=== PATIENT | female | born 1950 | race Caucasian/White ===

== ENCOUNTER 2018-03-30 12:02 | Emergency (ER) | payer MEDICARE, BC ==
[~2018-03-30] VITALS: Ht 162.6 cm; Wt 81.0 kg
[~2018-03-30 12:02] MED LIST: ASPI-611 PO; TOPI25TA15 PO
[2018-03-30 12:06] VITALS: BP 143/71
[2018-03-30] MEDS ORDERED: methylPREDNISolone sod succ 125mg/2ml vial IM ONE (12:35)
[2018-03-30] MEDS ORDERED: METH4TAB81 PO (12:40)
== END 2018-03-30 13:18 | disposition home or self-care (01) ==
LOC: ER 12:02
DX: M12.842 Other specific arthropathies, not elsewhere classified, left hand (principal); M12.841 Other specific arthropathies, not elsewhere classified, right hand; Z90.710 Acquired absence of both cervix and uterus; Z79.82 Long term (current) use of aspirin; Z79.899 Other long term (current) drug therapy
CPT/HCPCS: 96372; 99283; J2930

== ENCOUNTER 2020-03-13 12:58 | Inpatient (IN) | payer MEDICARE, BC ==
[~2020-03-13] VITALS: Ht 162.6 cm; Wt 83.0 kg
[~2020-03-13 12:58] MED LIST changes: +METH4TAB81 PO
[2020-03-13] MEDS ORDERED: iohexol 350MG/ML 100ml bottle IV ONE (13:11)
[2020-03-13 13:18] LABS: BASOPHILS # (AUTO) 0.1 X10'3 (0-0.2); BASOPHILS % (AUTO) 1.1 % (0-1); EOSINOPHILS # (AUTO) 0.1 X10'3 (0-0.9); EOSINOPHILS % (AUTO) 1.1 % (0-6); LYMPHOCYTES # (AUTO) 2.3 X10'3 (1.1-4.8); LYMPHOCYTES % (AUTO) 22.2 % (21-51); MEAN CORPUSCULAR HEMOGLOBIN 27.9 PG (27.0-31.0); MEAN CORPUSCULAR HGB CONC 32.5 g/dL (33.0-36.5); MEAN CORPUSCULAR VOLUME 85.7 FL (78-98); MEAN PLATELET VOLUME 8.9 FL (7.4-10.4); MONOCYTES # (AUTO) 0.7 X10'3 (0-0.9); MONOCYTES % (AUTO) 6.5 % (2-12); NEUTROPHILS # (AUTO) 7.1 X10'3 (1.8-7.7); NEUTROPHILS % (AUTO) 69.1 % (42-75); PLATELET COUNT 272 X10'3 (140-440); RED BLOOD COUNT 5.02 X10'6 (4.20-5.60); RED CELL DISTRIBUTION WIDTH 14.4 % (11.5-14.5); WHITE BLOOD COUNT 10.3 X10'3 (4.5-11.0)
[2020-03-13 13:36] LABS: ALANINE AMINOTRANSFERASE 30 U/L (12-78); ALBUMIN 3.6 G/DL (3.4-5.0); ALBUMIN/GLOBULIN RATIO 0.9 (1.1-1.5); ALKALINE PHOSPHATASE 115 IU/L (46-116); ANION GAP 12 (8-16); ASPARTATE AMINO TRANSFERASE 17 U/L (10-37); BILIRUBIN,TOTAL 0.3 MG/DL (0.1-1.0); BLOOD UREA NITROGEN 29 MG/DL (7-18); BUN/CREATININE RATIO 14.9 (6.6-38.0); CALCIUM 8.8 MG/DL (8.5-10.1); CHLORIDE 114 MMOL/L (99-107); CREATININE 1.95 MG/DL (0.40-0.90); GLUCOSE 105 MG/DL (70-104); PARTIAL THROMBOPLASTIN TIME 27 SECONDS (22-32); POTASSIUM 4.2 MMOL/L (3.5-5.1); SODIUM 145 MMOL/L (135-145); TOTAL PROTEIN 7.7 G/DL (6.4-8.2); eGFR 26 ML/MIN
[2020-03-13] MEDS ORDERED: aspirin 325mg tablet PO ONE (13:40)
[2020-03-13 13:42] LABS: TROPONIN I < 0.04 NG/ML (0.0-0.05)
[2020-03-13] MEDS ORDERED: magnesium 2GM in 50ml NS 50 ML IV PRN (14:05)
[2020-03-13] MEDS ORDERED: potassium Cl 20 mEq SR tablet PO PRN ×2 (14:05)
[2020-03-13] MEDS ORDERED: magnesium 4gm in 100ml NS 100 ML IV PRN (14:05)
[2020-03-13] MEDS ORDERED: potassium CL 10mEq/100ml bag 100 ML IV PRN ×2 (14:05)
[2020-03-13] MEDS ORDERED: mag hydrox/Alum hydrox/simeth 30ml oral suspension PO PRN (14:05)
[2020-03-13] MEDS ORDERED: magnesium hydroxide 30ml (MOM) UD suspension PO PRN (14:05)
[2020-03-13] MEDS ORDERED: ondansetron/PF 4mg/2ml inj IV PRN (14:05)
[2020-03-13] MEDS ORDERED: acetaminophen 325mg tablet PO PRN (14:05)
--- NOTE | 2020-03-13 15:55 | NUR ---
REPORT ATTEMPTED, JOSE MAYO TO CALL BACK IN APPROX 10 MIN
--- NOTE | 2020-03-13 16:13 | NUR ---
received report from Rebecca BARAHONA RN. Expecting pt to room 4011a shortly
[2020-03-13] MEDS ORDERED: ipratropium/albuterol 3ml nebule NEB PRN (17:05)
[2020-03-13 17:12] VITALS: BP 126/50
--- NOTE | 2020-03-13 18:08 | NUR ---
report to Carolina GARCIA
[2020-03-13] MEDS: K and/or MAG REPLACEMENT MC SCH (20:00)
[2020-03-13] MEDS: topiramate 25mg tablet PO SCH (20:23)
[2020-03-13 22:00] VITALS: BP 115/45
[2020-03-14 02:17] VITALS: BP 122/47
[2020-03-14 06:00] VITALS: BP 112/40
--- NOTE | 2020-03-14 06:25 | NUR ---
Problems reprioritized. Patient report given, questions answered & plan of care reviewed with damari Johnson.
--- NOTE | 2020-03-14 06:42 | NUR ---
Patient in room [facility] 4011A. I have received report from JOSE Figueroa and had the opportunity to ask questions and assume patient care.
[2020-03-14] MEDS: topiramate 25mg tablet PO SCH (07:14)
[2020-03-14 07:21] LABS: BASOPHILS # (AUTO) 0.1 X10'3 (0-0.2); BASOPHILS % (AUTO) 0.8 % (0-1); EOSINOPHILS # (AUTO) 0.2 X10'3 (0-0.9); HEMATOCRIT 42.1 % (35.0-45.0); HEMOGLOBIN 13.6 g/dl (12.0-16.0); LYMPHOCYTES # (AUTO) 2.8 X10'3 (1.1-4.8); LYMPHOCYTES % (AUTO) 32.6 % (21-51); MEAN CORPUSCULAR HEMOGLOBIN 27.8 PG (27.0-31.0); MEAN CORPUSCULAR HGB CONC 32.4 g/dL (33.0-36.5); MEAN CORPUSCULAR VOLUME 85.8 FL (78-98); MEAN PLATELET VOLUME 9.4 FL (7.4-10.4); MONOCYTES # (AUTO) 0.6 X10'3 (0-0.9); MONOCYTES % (AUTO) 6.9 % (2-12); NEUTROPHILS % (AUTO) 57.7 % (42-75); PLATELET COUNT 282 X10'3 (140-440); RED BLOOD COUNT 4.91 X10'6 (4.20-5.60); RED CELL DISTRIBUTION WIDTH 14.6 % (11.5-14.5); WHITE BLOOD COUNT 8.6 X10'3 (4.5-11.0)
[2020-03-14 07:36] LABS: ALANINE AMINOTRANSFERASE 31 U/L (12-78); ALBUMIN 3.4 G/DL (3.4-5.0); ALBUMIN/GLOBULIN RATIO 0.8 (1.1-1.5); ALKALINE PHOSPHATASE 106 IU/L (46-116); ANION GAP 12 (8-16); ASPARTATE AMINO TRANSFERASE 16 U/L (10-37); BILIRUBIN,TOTAL 0.7 MG/DL (0.1-1.0); BLOOD UREA NITROGEN 25 MG/DL (7-18); BUN/CREATININE RATIO 18.2 (6.6-38.0); CALCIUM 9.3 MG/DL (8.5-10.1); CHLORIDE 112 MMOL/L (99-107); CHOL/HDL RATIO 2.8 (0.00-4.99); CHOLESTEROL 177 MG/DL (0-200); CREATININE 1.37 MG/DL (0.40-0.90); GLUCOSE 85 MG/DL (70-104); HDL CHOLESTEROL 63 MG/DL (35-60); LDL CHOLESTEROL 96 MG/DL (50-100); POTASSIUM 3.9 MMOL/L (3.5-5.1); SODIUM 143 MMOL/L (135-145); TOTAL PROTEIN 7.5 G/DL (6.4-8.2); TRIGLYCERIDES 163 MG/DL (20-135); eGFR 38 ML/MIN
[2020-03-14] MEDS ORDERED: aspirin 81mg tablet.DR PO SCH (08:00)
[2020-03-14] MEDS: K and/or MAG REPLACEMENT MC SCH (08:00)
[2020-03-14] MEDS ORDERED: aspirin 325mg tablet PO SCH (08:30)
[2020-03-14] MEDS ORDERED: CLOP75TA15 PO (09:16)
[2020-03-14] MEDS ORDERED: ATOR10TA PO (09:16)
[2020-03-14] MEDS ORDERED: ASPI-1071 PO (09:16)
--- NOTE | 2020-03-14 10:18 | NUR ---
DC INSTRUCTIONS GIVEN TO PT, QUESTIONS ANSWERED. IV REMOVED, CANULA INTACT, NO COMPLICATIONS. TELE MONITOR REMOVED. PT DRESSED SELF. WHEELED DOWN TO PRIVATE VEHICLE IN STABLE CONDITION
== END 2020-03-14 10:08 | disposition home or self-care (01) | DRG 65 ==
LOC: ER 12:59 → ED HOLD 14:01 → EDBEDREQ 15:11 → ORTHO 4S 16:51
PROVIDERS: ADMIT Family Medicine; ATTEND Family Medicine
DX: I63.9 Cerebral infarction, unspecified (principal); K50.90 Crohn's disease, unspecified, without complications; N17.9 Acute kidney failure, unspecified; N18.4 Chronic kidney disease, stage 4 (severe); R47.01 Aphasia; D32.9 Benign neoplasm of meninges, unspecified; E78.5 Hyperlipidemia, unspecified; F17.210 Nicotine dependence, cigarettes, uncomplicated; R47.1 Dysarthria and anarthria; H53.8 Other visual disturbances; G40.909 Epilepsy, unspecified, not intractable, without status epilepticus; L40.9 Psoriasis, unspecified; Z79.02 Long term (current) use of antithrombotics/antiplatelets; Z79.82 Long term (current) use of aspirin; Z86.73 Personal history of transient ischemic attack (TIA), and cerebral infarction without residual deficits; Z87.442 Personal history of urinary calculi; Z90.710 Acquired absence of both cervix and uterus; Z79.899 Other long term (current) drug therapy; Z90.49 Acquired absence of other specified parts of digestive tract; Z71.6 Tobacco abuse counseling
CPT/HCPCS: 36415; 70450; 70496; 70498; 71045; 80053; 80061; 83735; 84484; 85025; 85610; 85730; 87081; 92508; 92616; 93005; 93306; 94760; 97110; 97116; 97162; 99291; G0378; Q9967